=== PATIENT | female | born 1965 | race Caucasian/White ===

== ENCOUNTER → 2017-06-23 | Outpatient (CLI) | payer OTHER ==
[~2017-06-23] MED LIST: ACTEMRA162 MG/0.9 SUBQ; ACTEMRA80 MG/4 ML; APAP650 PO; ARAVA10 MG PO; ARAVA20 MG PO; CLONIDINE0.1 PO; FLEXERIL PO; FOLIC ACID1 MG PO; METHOTREXA1 GM/40 M1 PO; METHOTREXATE 22.5 MG PO; NORCO 5-325 TA1 EACH PO; PREDNISONE 5 MG5 MG PO; PRILOSEC 20 MG20 MG PO; TOPROL XL100 MG PO; TOPROL XL50 MG PO; TRAMADOL 50 MG50 MG PO; VITAMIN D1000 UNI2 PO
== END ==
LOC: CAT 07:49
DX: Z13.6 Encounter for screening for cardiovascular disorders (principal)

== ENCOUNTER → 2017-07-08 | Outpatient (CLI) | payer BC | LOC: ULTRA 08:25 | DX: K76.0 Fatty (change of) liver, not elsewhere classified (principal); R91.1 Solitary pulmonary nodule; R07.9 Chest pain, unspecified ==

== ENCOUNTER → 2017-12-07 | Outpatient (CLI) | payer BC | LOC: RAD 11-29 10:56 | DX: Z12.31 Encounter for screening mammogram for malignant neoplasm of breast (principal) ==